=== PATIENT | female | born 2005 | race Caucasian/White ===

== ENCOUNTER 2024-02-08 14:13 | Emergency (ER) | payer SELFPAY ==
[2024-02-08 14:15] VITALS: BP 128/90
[2024-02-08 14:47] LABS: % Basophils 0.6 % (0-2); % Eosinophils 1.4 % (0-6); % Immature Granulocytes 0.2 % (0-0.5); % Lymphocytes 27.5 % (20.5-51.1); % Monocytes 6.4 % (1.7-9.3); % Neutrophils 63.9 % (42.2-75.2); Absolute Basophils 0.1 10^3/uL (0-0.2); Absolute Eosinophils 0.1 10^3/uL (0-0.7); Absolute Lymphocytes 2.5 10^3/uL (1.2-3.4); Absolute Monocytes 0.6 10^3/uL (0.1-0.6); Absolute Neutrophils 5.8 10^3/uL (1.4-6.5); Hematocrit 35.2 % (37.0-47.0); Hemoglobin 11.6 g/dL (12.0-16.0); Mean Corpuscular Hgb 29.3 pg (27.0-31.0); Mean Corpuscular Volume 88.9 fL (81.0-99.0); Mean Platelet Volume 9.3 fL (7.4-10.4); Nucleated Red Blood Cells % 0 %; Platelet Count 262 10^3/uL (130-400); Red Blood Cell Count 3.96 10^6/uL (4.20-5.40); Red Cell Dist. Width 13.7 % (11.5-14.5); White Blood Cell Count 9.1 10^3/uL (4.8-10.8)
[2024-02-08 15:00] LABS: ALT (SGPT) 17 U/L (0-35); AST (SGOT) 20 U/L (14-36); Albumin 4.5 g/dl (3.5-5.0); Alkaline Phosphatase 45 U/L (38-126); Blood Urea Nitrogen 13 mg/dl (7-17); Calcium 9.3 mg/dl (8.4-10.2); Carbon Dioxide 26 mmol/L (22-30); Chloride 105 mmol/L (98-107); Glucose 120 mg/dl (70-99); HCG, Serum Qualitative Screen Negative; Sodium 139 mmol/L (135-145); Total Bilirubin 0.8 mg/dl (0.2-1.3); Total Protein 6.9 g/dl (6.3-8.2); eGFR > 60.00
--- NOTE | 2024-02-08 15:45 | ED.GENMED ---
History of Present Illness
General
Chief Complaint: Vaginal Bleeding
Source: patient
Time Seen by Provider: 02/08/24 15:20
History of Present Illness
History of Present Illness:
18yoF with no significant past medical history presenting with her mother for evaluation of vaginal bleeding. Symptoms began around 11am this morning during class. She reports passing large clots and saturated through her first pad in 30 minutes.
Her bleeding has since improved and she is currently on her 3rd pad since 11am. She also reports pelvic/uterine cramping. No dizziness, syncope, shortness of breath. Of note, patient started using a NuvaRing 1 week ago for the first time. She is
unsure if the Nuvaring fell out. LMP 2 weeks ago which was also heavy. She also had a medical in October. She receives her gynecologic care from [facility].
Phy Exam
General Physical Exam
General Presentation: well appearing and no apparent distress
General age: appears stated age
General Skin: warm and dry
General Habitus: normal
General Mental: alert
General Hydration: appears well hydrated
ENT Exam
ENT Exam: normocephalic
Pulmonary Exam
Pulmonary Exam: no respiratory distress
Gastrointestinal Exam
Gastrointestinal Exam: non tender, soft and non distended
Genitourinary Exam Female
Exam Female: vaginal bleeding and other (Moderate sized clot noted at cervix. NuvaRing not visualized on speculum exam and not palpated on bimanual exam. No CMT.)
Neurological Exam
Neurological Exam: alert
Helen Coma Scale
Eye Opening: Spontaneous
Verbal Response: Oriented
Motor Response: Obeys Commands
GCS Total Score: 15
Skin Exam
Skin Exam: normal color and warm/dry
Psychiatric Exam
Psychiatric Exam: normal mood/affect
Course
Orders/Labs/Results
Orders:
Orders
02/08/24 14:20
Test Result ONCE
02/08/24 14:24
Type+Screen Urgent
CMP [Comprehensive Metabolic Panel] Urgent
Complete Blood Count/With Diff Urgent
HCG, Serum Qualitative Screen Urgent
02/08/24 15:43
Pelvis & Transvaginal US [US Pelvis W Transvag Combined] Urgent
Comment:
Reason For Exam: Vaginal bleeding
02/08/24 15:50
ABO2 Urgent
BBK Wristband Number:
Associate notified that ABO2 has been ordered: [id number]
Date: 02/08/24
Time: 14:57
Sales Floor Associate ID: [id number]
Abnormal Lab Results
02/08/24
14:24
RBC 3.96 L 10^6/uL
(4.20-5.40)
Hgb 11.6 L g/dL
(12.0-16.0)
Hct 35.2 L %
(37.0-47.0)
Glucose 120 H mg/dl
(70-99)
02/08/24 14:24
02/08/24 14:24
Vital Signs
Initial and Last Documented VS:
Initial Vital Signs
Temp Pulse Resp BP Pulse Ox
98.2 F 83 16 128/90 100
02/08/24 14:15 02/08/24 14:15 02/08/24 14:15 02/08/24 14:15 02/08/24 14:15
Last Documented Vital Signs
Temp Pulse Resp BP Pulse Ox
98.2 F 78 18 133/79 100
02/08/24 14:15 02/08/24 17:56 02/08/24 17:56 02/08/24 17:56 02/08/24 14:15
MDM/Problems Addressed
Differential Diagnosis Includes:
18yoF here with heavy vaginal bleeding that started at 11am today. Now improved. Inserted a NuvaRing for the first time 1 week ago. VSS. She is well appearing in no distress. There is a moderate sized clot noted on pelvic exam. NuvaRing not
visualized or palpated. Differential diagnosis includes but is not limited to: dysfunctional uterine bleeding, side effect of contraceptive, anemia
Initial ED plan: Labs obtained in triage. Hemoglobin mildly decreased at 11.6. HCG negative. Will obtain pelvic ultrasound.
*Critical Care Note
Total Time (30-74mins, 75-104mins- exclusive of procedures): Not Applicable
Update Note
Update Note:
Pelvic ultrasound is negative for acute findings. Bleeding has improved and she has only used 1 pad throughout ED stay. She is stable for discharge. Advised f/u with OBGYN and ED return precautions discussed. She expressed understanding and is
agreeable to plan. She was discharged in stable condition.
ED Attending Note
-
Portions of this chart may have been created with voice recognition software.� Occasional wrong word or��sound alike� substitutions may have occurred due to the inherent limitations of voice recognition software.
Discharge Plan
Departure
Patient Disposition: Home (Routine Discharge)
Date of Disposition: 02/08/24
Time of Disposition: 17:44
Patient with high blood pressure during this ER visit?: No
Discharge Problem:
Dysfunctional uterine bleeding
Instructions: Heavy Periods ED
Referrals:
NONE,* [Family Provider] -
Princess Funes MD [Active] -
Activity Restrictions/Additional Instructions:
Please call tomorrow to schedule a follow-up appointment with OBGYN. Return to the ER with any worsening symptoms or if you bleed through >2 pads/hour for >2 hours.
Interventions
Interventions:
*Risk Screen - Suicide Last Done: 02/08/24 14:15
*General Assessment Last Done: 02/08/24 14:15
*Neglect/Abuse Screening Last Done: 02/08/24 15:34
*ED COVID-19 Vaccine History Last Done: 02/08/24 14:15
*Nursing Disposition Last Done: 02/08/24 17:56
ED-Female Genitourinary Assessment Last Done: 02/08/24 15:53
Discharge Date and Time
Discharge Date/Time: 02/08/24 18:00
Print Language: SAMI
[2024-02-08 17:56] VITALS: BP 133/79
== END 2024-02-08 18:00 | disposition home or self-care (01) ==
LOC: EMR 14:13
PROVIDERS: Emergency Medicine; EMERGENCY PHYSICIAN Emergency Medicine
DX: N93.8 Other specified abnormal uterine and vaginal bleeding (principal); R10.2 Pelvic and perineal pain
CPT/HCPCS: 99284; 76830; 76856; 80053; 84703; 85025; 86850; 86900; 86901

== ENCOUNTER 2024-11-17 12:07 | Emergency (ER) | payer SELFPAY ==
[2024-11-17 12:12] VITALS: BP 136/93
[2024-11-17 12:30] LABS: Urine Character Clear (Clear)
[2024-11-17] MEDS: ROCEPHIN 1000 MG IV (13:37)
[2024-11-17] MEDS: NSS 1000 IV (13:38)
[2024-11-17 13:45] LABS: Urine Squamous Cell 0-2 /LPF (Few)
[2024-11-17 13:46] LABS: Urine White Cell 30-40 /HPF (0-5)
[2024-11-17 13:48] LABS: Urine Red Blood Cell 0-2 /HPF (0-2)
[2024-11-17 13:50] LABS: Hematocrit 42.5 % (37.0-47.0); Hemoglobin 14.4 g/dL (12.0-16.0); Mean Corp Hgb Conc. 33.9 g/dL (33.0-37.0); Mean Corpuscular Volume 88.7 fL (81.0-99.0); Nucleated Red Blood Cells % 0 %; Platelet Count 275 10^3/uL (130-400); Red Cell Dist. Width 13.5 % (11.5-14.5)
[2024-11-17 14:00] VITALS: BP 129/85
[2024-11-17 14:04] LABS: HCG, Serum Qualitative Screen Negative
--- NOTE | 2024-11-17 14:09 | ED.GENMED ---
History of Present Illness
General
Chief Complaint: Flank Pain
Time Seen by Provider: 11/17/24 13:22
History of Present Illness
History of Present Illness:
19-year-old female presents to the emergency department for evaluation of dysuria and right flank pain for the past week. She has gradually developed flulike symptoms along with this. Denies concern for STI. No nausea vomiting or diarrhea. No
coughing or URI symptoms.
Review of Systems
Review of Systems
Allergies reviewed?: Yes
All Other Systems: ROS reviewed and negative except as documented in HPI and ROS
Phy Exam
Physical Exam
Physical Exam:
GEN: Well appearing, NAD, WDWN
HEENT: Oral mucosa moist, no scleral icterus
Cardiac: Regular rate
Lung: No respiratory distress, no tachypnea
Abdomen: Soft, nontender anteriorly, positive right CVA tenderness, negative left
MSK: No gross deformity or injuries
Skin: Good color, no pallor or jaundice, no rashes
Neuro: AO x3, moves all extremities freely
Psych: Calm, cooperative
Course
Orders/Labs/Results
Orders:
Orders
11/17/24 12:20
Urinalysis Reflex To Culture Urgent
Date Specimen was Collected: 11/17/24
Time Specimen was Collected: 12:16
Urine Microscopic Reflex Cult Urgent
Urine Culture Urgent
EDILBERTO Source: U
Specimen Description:
Date Specimen was Collected: 11/17/24
Time Specimen was Collected: 12:16
11/17/24 13:27
0.9% Sodium Chloride 1000 ml [Nss] 1,000 ml IV BOLUS
CefTRIAXone [Rocephin] 1,000 mg IV NOW STA
Test Result ONCE
11/17/24 13:37
Complete Blood Count/With Diff Urgent
Comprehensive Metabolic Panel Urgent
HCG, Serum Qualitative Screen Urgent
Abnormal Lab Results
11/17/24 11/17/24
12:20 13:37
WBC 16.1 H 10^3/uL
(4.8-10.8)
Abs Immat Gran (auto) 0.1 H 10^3/uL
(0-0.05)
Absolute Neuts (auto) 13.1 H 10^3/uL
(1.4-6.5)
Absolute Monos (auto) 1.4 H 10^3/uL
(0.1-0.6)
Immature Gran % 0.8 H %
(0-0.5)
Neutrophils % 81.2 H %
(42.2-75.2)
Lymphocytes % 8.4 L %
(20.5-51.1)
Glucose 100 H mg/dl
(70-99)
AST 41 H U/L
(14-36)
ALT 61 H U/L
(0-35)
Urine Ketones 2+ A
(Negative)
Ur Occult Blood Reflex 2+ A
(Negative)
Leukocyte Esterase Rfl 3+ A
(Negative)
Urine WBC (Reflex) 30-40 A /HPF
(0-5)
Urine Bacteria (Reflex) Moderate A
(Negative)
Urine Albumin (Reflex) 1+ A
(Neg - Trace)
11/17/24 13:37
11/17/24 13:37
Vital Signs
Initial and Last Documented VS:
Initial Vital Signs
Temp Pulse Resp BP Pulse Ox
98.3 F 121 16 136/93 99
11/17/24 12:12 11/17/24 12:12 11/17/24 12:12 11/17/24 12:12 11/17/24 12:12
Last Documented Vital Signs
Temp Pulse Resp BP Pulse Ox
98.3 F 121 16 136/93 99
11/17/24 12:12 11/17/24 12:12 11/17/24 12:12 11/17/24 12:12 11/17/24 14:10
MDM/Problems Addressed
MDM/Problems Addressed:
Symptoms compatible with acute pyelonephritis, she does have leukocytosis but clinically looks well otherwise, given IV fluids and IV antibiotics and tolerated this well, will discharge on oral antibiotics, ED return parameters discussed
*Pulse Oximetry
SaO2: 99
Oxygen Mode of Delivery: Room air
Patient hypoxic: no
*Critical Care Note
Total Time (30-74mins, 75-104mins- exclusive of procedures): Not Applicable
ED Attending Note
-
Portions of this chart may have been created with voice recognition software.� Occasional wrong word or��sound alike� substitutions may have occurred due to the inherent limitations of voice recognition software.
Discharge Plan
Departure
Patient Disposition: Home (Routine Discharge)
Date of Disposition: 11/17/24
Time of Disposition: 14:18
Patient with high blood pressure during this ER visit?: No
Discharge Problem:
Acute pyelonephritis
Instructions: Urinary tract infection (DC)
Prescriptions:
New
cefdinir 300 mg capsule
300 mg PO Q12H 10 Days Qty: 20 0RF
Interventions
Interventions:
*Risk Screen - Suicide Last Done: 11/17/24 12:12
*Neglect/Abuse Screening Last Done: 11/17/24 12:12
Discharge Date and Time
Print Language: TUNISIAN
[2024-11-17 14:11] LABS: ALT (SGPT) 61 U/L (0-35); AST (SGOT) 41 U/L (14-36); Albumin 4.5 g/dl (3.5-5.0); Alkaline Phosphatase 77 U/L (38-126); Blood Urea Nitrogen 9 mg/dl (7-17); Calcium 9.4 mg/dl (8.4-10.2); Carbon Dioxide 25 mmol/L (22-30); Chloride 102 mmol/L (98-107); Glucose 100 mg/dl (70-99); Potassium 4.2 mmol/L (3.5-5.1); Sodium 136 mmol/L (135-145); Total Protein 7.7 g/dl (6.3-8.2); eGFR > 60.00
== END 2024-11-17 15:40 | disposition home or self-care (01) ==
LOC: EMR 12:07
PROVIDERS: Physician Assistant; Student in an Organized Health Care Education/Training Program; EMERGENCY PHYSICIAN Emergency Medicine
DX: N10 Acute pyelonephritis (principal)
CPT/HCPCS: 96374; 96361; 99284; 80053; 81003; 81015; 84703; 85025; 87077; 87086